=== PATIENT | male | born 1990 | race Caucasian/White ===

== ENCOUNTER → 2023-12-20 14:44 | Outpatient (REF) | payer BC, SELFPAY | LOC: RAD 14:44 | PROVIDERS: ATTENDING PHYSICIAN Nurse Practitioner Family | DX: N50.812 Left testicular pain (principal) | CPT/HCPCS: 76870; 93976 ==

== ENCOUNTER → 2024-11-04 20:10 | Outpatient (REF) | payer BC, SELFPAY | LOC: MRI 3T 20:10 | PROVIDERS: ATTENDING PHYSICIAN Nurse Practitioner Family | DX: R51.9 Headache, unspecified (principal) | CPT/HCPCS: 70553; A9575 ==